=== PATIENT | male | born 1955 | race Caucasian/White ===

== ENCOUNTER 2017-01-23 06:59 | Day surgery (SDC) | payer MEDICAID ==
[~2017-01-23] VITALS: Ht 167.6 cm; Wt 81.6 kg
[~2017-01-23 06:59] MED LIST: BENA20TA14 PO; HYDR-4683 PO
[2017-01-23] MEDS ORDERED: MIDAZOLAM HCL 1MG/1ML-2 ML VIAL ONE ×2 (09:32→10:32)
[2017-01-23] MEDS ORDERED: PROPOFOL 10 MG/ML 20 ML IV ONE (09:34)
[2017-01-23] MEDS ORDERED: GLYCOPYRROLATE 0.2 MG/ML 1ML VIAL ONE (10:25)
[2017-01-23] MEDS ORDERED: LIDOCAINE HCL 2% TOP JELLY 5ML TOP ONE (10:36)
[2017-01-23] MEDS ORDERED: ONDANSETRON HCL 4 MG/2 ML VIAL IV ONE (11:00)
[2017-01-23] MEDS ORDERED: NALOXONE HCL 0.4 MG/ML VIAL IV PRN (11:00)
[2017-01-23] MEDS ORDERED: fentaNYL CITRATE 100 MCG/2 ML VL IV ONE (11:00)
[2017-01-23 11:30] VITALS: BP 104/65
== END 2017-01-23 11:45 | disposition home or self-care (01) ==
LOC: SUR 06:59
PROVIDERS: ATTEND Internal Medicine Gastroenterology
DX: K29.60 Other gastritis without bleeding (principal); K29.80 Duodenitis without bleeding; K44.9 Diaphragmatic hernia without obstruction or gangrene; K20.9 Esophagitis, unspecified; Z43.1 Encounter for attention to gastrostomy; Z87.891 Personal history of nicotine dependence; C02.9 Malignant neoplasm of tongue, unspecified; I10 Essential (primary) hypertension; I25.10 Atherosclerotic heart disease of native coronary artery without angina pectoris; J44.9 Chronic obstructive pulmonary disease, unspecified; Z85.810 Personal history of malignant neoplasm of tongue; F17.210 Nicotine dependence, cigarettes, uncomplicated; M19.90 Unspecified osteoarthritis, unspecified site
CPT/HCPCS: 43239; 43246; B4087; J7030; J1642; J2250; J2704

== ENCOUNTER 2017-01-23 17:19 | Emergency (ER) | payer MEDICAID ==
[~2017-01-23] VITALS: Ht 167.6 cm; Wt 81.6 kg
[2017-01-23 21:06] LABS: Basophils # (auto) 0.1 uL; Basophils % (auto) 0.7 % (0.0-2.0); Eosinophils # (auto) 0.1 uL; Hematocrit 40.6 % (41.0-53.0); Lymphocytes # (auto) 1.2 uL; Lymphocytes % (auto) 13.7 % (10.0-50.0); Mean Corpuscular Hemoglobin 30.4 pg (28.0-32.0); Mean Corpuscular Hgb Conc. 34.4 g/dL (32.0-36.0); Mean Corpuscular Volume 88.3 fL (80.0-100.0); Monocytes # (auto) 1.3 uL; Monocytes % (auto) 14.3 % (0.0-12.0); Neutrophils # (auto) 6.4 uL; Neutrophils % (auto) 70.3 % (37.0-80.0); Nucleated Red Blood Cells % 0.1 %; Platelet Count (auto) 216 10^3/uL (140-450); Red Cell Distribution Width 14.1 % (11.8-14.3); White Blood Cell 9.1 10^3/uL (4.4-10.8)
[2017-01-23 21:20] LABS: Albumin 3.1 g/dL (3.4-5.0); BUN/Creatinine Ratio 21.2; Calcium 9.3 mg/dL (8.5-10.1); Potassium 3.3 mmol/L (3.5-5.1)
[2017-01-23 21:23] LABS: Bilirubin, Total 0.7 mg/dL (0.2-1.0); Total Protein 7.8 g/dL (6.4-8.2)
[2017-01-23] MEDS ORDERED: MORPHINE SULFATE 4 MG/ML SYR/VIAL IV ONE (22:00)
[2017-01-23] MEDS ORDERED: ONDANSETRON HCL 4 MG/2 ML VIAL IV ONE (22:00)
[2017-01-23] MEDS ORDERED: SODIUM CHLORIDE 0.9% 1,000 ML IV SCH (22:00)
[2017-01-24 03:10] VITALS: BP 143/76
== END 2017-01-24 03:43 | disposition home or self-care (01) ==
LOC: ER 17:26
DX: E86.0 Dehydration (principal); C02.9 Malignant neoplasm of tongue, unspecified; R13.11 Dysphagia, oral phase; R63.4 Abnormal weight loss; Z85.810 Personal history of malignant neoplasm of tongue
CPT/HCPCS: 36415; 80053; 85025; 96361; 96374; 96375; 99285; J2270; J2405; J7030